=== PATIENT | female | born 1985 | race Caucasian/White ===

== ENCOUNTER 2021-10-25 19:43 | Emergency (ER) | payer OTHER ==
[~2021-10-25 19:43] MED LIST: ALBUTEROL1.25 MG/3 INH; HUMULIN 70100 UNIT/1 SC; KEFLEX500 MG PO; MELATONIN10 M2 PO; NICOTINE PATCH1 EAC1 TD; SUBOXONE 12 MG1 EACH PO; TRAZODONE HCL100 MG PO; VISTARIL 50 MG50 MG PO
[2021-10-25 22:33] LABS: HEMOGLOBIN 10.2 gm/dl (12.3-15.3); RED BLOOD COUNT 3.82 M/UL (4.00-5.10)
[2021-10-25 23:08] LABS: BUN/CREATININE RATIO 26 (0-10)
[2021-10-26] MEDS ORDERED: CEPHALEXIN500 M1 PO (00:51)
[2021-10-26] MEDS ORDERED: BACTRIM DS TAB1 EACH PO (00:51)
== END 2021-10-26 01:03 | disposition home or self-care (01) ==
LOC: ER1 19:43
PROVIDERS: Physician Assistant
DX: L03.115 Cellulitis of right lower limb (principal); E10.9 Type 1 diabetes mellitus without complications; J44.9 Chronic obstructive pulmonary disease, unspecified; F17.200 Nicotine dependence, unspecified, uncomplicated
CPT/HCPCS: 73701; 80053; 83605; 85025; 87040; 96374; 99284; Q9967